=== PATIENT | female | born 1985 | race African-American/Black ===

== ENCOUNTER 2017-06-17 07:51 | Emergency (ER) | payer BC, MEDICAID ==
[~2017-06-17] VITALS: Ht 160 cm; Wt 57.0 kg
[~2017-06-17 07:51] MED LIST: LORA1TAB PO
[2017-06-17] MEDS ORDERED: MEGE40TA27 GT (08:00)
[2017-06-17 08:37] VITALS: BP 115/73
== END 2017-06-17 08:41 | disposition home or self-care (01) ==
LOC: ER 08:20
DX: M25.572 Pain in left ankle and joints of left foot (principal); F41.9 Anxiety disorder, unspecified; Z98.890 Other specified postprocedural states; Z88.8 Allergy status to other drugs, medicaments and biological substances
CPT/HCPCS: 99283